=== PATIENT | male | born 1990 | race Two or more races ===

== ENCOUNTER 2020-02-21 22:45 | Emergency (ER) | payer OTHER ==
[~2020-02-21] VITALS: Ht 188 cm; Wt 108.9 kg
[2020-02-21] MEDS ORDERED: GLIMEPIRIDE2 MG (23:10)
[2020-02-22] MEDS ORDERED: PEPCID20 MG PO (03:33)
[2020-02-22] MEDS ORDERED: CARAFATE1 GM PO (03:33)
== END 2020-02-22 04:05 | disposition home or self-care (01) ==
LOC: ER 22:45
DX: K29.60 Other gastritis without bleeding (principal); R10.816 Epigastric abdominal tenderness

== ENCOUNTER 2020-10-08 22:19 | Emergency (ER) | payer OTHER ==
[~2020-10-08] VITALS: Ht 185.4 cm; Wt 108.9 kg
[~2020-10-08 22:19] MED LIST: CARAFATE1 GM PO; GLIMEPIRIDE2 MG; PEPCID20 MG PO
[2020-10-09] MEDS ORDERED: PROTONIX20 MG PO (00:51)
== END 2020-10-09 00:56 | disposition home or self-care (01) ==
LOC: ER 22:19
DX: K29.70 Gastritis, unspecified, without bleeding (principal); Z03.818 Encounter for observation for suspected exposure to other biological agents ruled out

== ENCOUNTER 2021-04-25 17:29 | Emergency (ER) | payer OTHER ==
[~2021-04-25] VITALS: Ht 182.9 cm; Wt 111.1 kg
[~2021-04-25 17:29] MED LIST changes: +PROTONIX20 MG PO
[2021-04-25] MEDS ORDERED: FORTAMET500 MG PO (17:37)
== END 2021-04-26 | disposition home or self-care (01) ==
LOC: ER 17:29
DX: L03.116 Cellulitis of left lower limb (principal)

== ENCOUNTER 2021-07-05 20:43 | Emergency (ER) | payer OTHER ==
[~2021-07-05] VITALS: Ht 188 cm; Wt 108.9 kg
[~2021-07-05 20:43] MED LIST changes: +FORTAMET500 MG PO
== END 2021-07-05 23:54 | disposition home or self-care (01) ==
LOC: ER 20:43
DX: K29.60 Other gastritis without bleeding (principal); R10.9 Unspecified abdominal pain; Z03.818 Encounter for observation for suspected exposure to other biological agents ruled out